=== PATIENT | female | born 1990 ===

== ENCOUNTER 2024-10-01 08:35 | Outpatient (CLI) | payer OTHER | END 2024-10-01 08:38 | disposition home or self-care (01) | LOC: PRENATAL 08:35 | PROVIDERS: ATTEND Obstetrics & Gynecology Maternal & Fetal Medicine | DX: O36.80X0 Pregnancy with inconclusive fetal viability, not applicable or unspecified (principal); Z36.82 Encounter for antenatal screening for nuchal translucency; O99.210 Obesity complicating pregnancy, unspecified trimester; Z3A.12 12 weeks gestation of pregnancy ==

== ENCOUNTER 2024-12-01 08:06 | Outpatient (CLI) | payer OTHER ==
[2024-12-01] MEDS ORDERED: PRENATAL + DHA1 EAC1 PO (11:53)
[2024-12-01] MEDS ORDERED: ASA81 MG PO (11:53)
== END 2024-12-01 08:07 | disposition home or self-care (01) ==
LOC: PRENATAL 08:06
PROVIDERS: ATTEND Obstetrics & Gynecology Maternal & Fetal Medicine
DX: O44.00 Complete placenta previa NOS or without hemorrhage, unspecified trimester (principal); O99.210 Obesity complicating pregnancy, unspecified trimester; O26.879 Cervical shortening, unspecified trimester; Z3A.21 21 weeks gestation of pregnancy

== ENCOUNTER 2024-12-01 10:02 | Inpatient (IN) | payer OTHER ==
[~2024-12-01] VITALS: Ht 167.6 cm; Wt 124.7 kg
[2024-12-01 10:15] VITALS: BP 124/83
[2024-12-01] MEDS ORDERED: AMPICILLIN SODIUM 2,000 MG VIAL ONE (10:36)
[2024-12-01] MEDS ORDERED: AMPICILLIN SODIUM 2,000 MG VIAL IV ONE (10:45)
[2024-12-01] MEDS ORDERED: RINGERS SOLUTION,LACTATED 1,000 ML IV SCH (10:45)
[2024-12-01 11:22] LABS: PH,URINE 7.5 (5.0-8.0); URINE APPEARANCE Clear; URINE BILIRRUBIN Negative (NEGATIVE); URINE BLOOD Negative; URINE COLOR Yellow; URINE GLUCOSE Negative (NEGATIVE); URINE KETONE Negative (NEGATIVE); URINE LEUKOCYTE Negative; URINE NITRATE Negative; URINE PROTEIN Negative (NEGATIVE); URINE UROBILINOGEN 0.2 E.U./dl
[2024-12-01 11:23] LABS: HEMATOCRIT 32.9 % (36.0-45.00); HEMOGLOBIN 11.2 g/dL (12.0-15.00); MEAN CELL VOLUME 83.7 fL (80.00-100.00); MEAN CORPUSCULAR HEMOGLOBIN 28.4 pg (27.00-32.0); MEAN CORPUSCULAR HGB CONC 33.9 g/dl (32.0-36.0); PLATELET COUNT 377 K/uL (150-450); RED BLOOD COUNT 3.93 M/uL (4.00-6.00); RED CELL DISTRIBUTION WIDTH 14.8 % (11.5-14.5); URINE BACTERIA 17.1 uL (0.0-1933); URINE EPITHELIAL CELLS 2.8 uL (0.0-38.8); URINE RBC 10.3 uL (0.0-20.8); URINE WBC 2.6 uL (0.0-23.2)
[2024-12-01 11:31] LABS: URINE CAST 0.14 uL (0.0-1.40)
[2024-12-01 11:38] VITALS: BP 105/69; O2SAT 100
[2024-12-01 11:46] LABS: INR < 0.93; PARTIAL THROMBOPLASTIN TIME 26.2 SECONDS (22.0-34.0); PROTHROMBIN TIME 10.1 SECONDS (9.0-11.5)
[2024-12-01 11:49] LABS: ALBUMIN 2.8 gm/dL (3.4-5.0); BILIRUBIN TOTAL 0.21 mg/dL (0.3-1.2); GFR 268.09; GLOBULINA 3.8 G/DL (2.4-3.5); POTASSIUM 4.03 mEq/L (3.5-5.1); TOTAL PROTEIN 6.6 gm/dL (6.4-8.2)
[2024-12-01] MEDS ORDERED: ASA81 MG PO (11:53)
[2024-12-01] MEDS ORDERED: PRENATAL + DHA1 EAC1 PO (11:53)
[2024-12-01 11:55] LABS: CREATININE SERUM 0.29 mg/dL (0.55-1.02)
[2024-12-01] MEDS ORDERED: AMPICILLIN SODIUM 1,000 MG VIAL IV SCH ×2 (13:00→16:00)
[2024-12-01 15:43] VITALS: BP 194/71
[2024-12-01 19:41] VITALS: BP 107/73
[2024-12-01] MEDS ORDERED: ACETAMINOPHEN 500 MG GEL..CAP PO ONE ×2 (22:29→22:30)
[2024-12-01 23:18] VITALS: BP 108/72
[2024-12-02 03:47] VITALS: BP 107/70
[2024-12-02 06:01] VITALS: BP 96/66; O2SAT 99
[2024-12-02] MEDS ORDERED: PNV,CALCIUM 72/IRON/FOLIC ACID 1 TAB TABLET PO ONE (09:26)
[2024-12-02] MEDS ORDERED: PNV,CALCIUM 72/IRON/FOLIC ACID 1 TAB TABLET PO SCH (09:30)
[2024-12-02 11:25] VITALS: BP 110/75
[2024-12-02 13:55] VITALS: BP 115/76
[2024-12-02 17:05] VITALS: BP 107/74
[2024-12-03 00:52] VITALS: BP 108/60
[2024-12-03 08:00] VITALS: BP 128/70
[2024-12-03 15:16] VITALS: BP 114/80
[2024-12-04 00:23] VITALS: BP 111/70
[2024-12-04 10:32] VITALS: BP 109/75
[2024-12-04 16:00] VITALS: BP 105/71
[2024-12-05] VITALS: BP 95/60
[2024-12-05 09:00] VITALS: BP 108/74
[2024-12-05 17:38] VITALS: BP 91/62
[2024-12-06] VITALS: BP 112/76
[2024-12-06 08:00] VITALS: BP 121/78
[2024-12-06] MEDS ORDERED: ACETAMINOPHEN 500 MG GEL..CAP PO NR (13:30)
[2024-12-06] MEDS ORDERED: GUAIFENESIN 200 MG/10 ML BLIST.PACK PO PRN (13:30)
[2024-12-06 16:00] VITALS: BP 102/69
[2024-12-06] MEDS ORDERED: DOCUSATE SODIUM 100MG CAP PO SCH (17:00)
[2024-12-06 23:35] VITALS: BP 112/67
[2024-12-07 08:00] VITALS: BP 108/71
[2024-12-07 15:24] VITALS: BP 100/68
[2024-12-08 01:54] VITALS: BP 101/70
[2024-12-08 08:00] VITALS: BP 101/67
[2024-12-08] MEDS ORDERED: ASPIRIN 81 MG TABLET.EC PO NR (10:30)
[2024-12-08 20:22] VITALS: BP 114/69
[2024-12-09] VITALS: BP 106/73
[2024-12-09 08:00] VITALS: BP 113/71
[2024-12-09] MEDS ORDERED: ASPIRIN 81 MG TABLET.EC PO SCH (09:00)
[2024-12-09 16:00] VITALS: BP 97/60
[2024-12-10 00:25] VITALS: BP 109/62
[2024-12-10 08:00] VITALS: BP 97/65
[2024-12-10 14:58] VITALS: BP 111/74
[2024-12-11 00:17] VITALS: BP 118/75
[2024-12-11 08:23] VITALS: BP 110/78
[2024-12-11] MEDS ORDERED: DOCUSATE CALCIUM 240 MG CAPSULE PO NR (10:15)
[2024-12-11] MEDS ORDERED: DOCUSATE CALCIUM 240 MG CAPSULE PO SCH (17:00)
[2024-12-11 17:20] VITALS: BP 101/69
[2024-12-11 23:55] VITALS: BP 109/60
[2024-12-12 16:08] VITALS: BP 125/83
[2024-12-13] VITALS: BP 116/78
[2024-12-13 08:00] VITALS: BP 111/71
[2024-12-13 16:07] VITALS: BP 110/70
== END 2024-12-13 17:36 | disposition home or self-care (01) | DRG 831 ==
LOC: OB/GYN 10:02 → LDR 10:02 → OB/GYN 12-02 11:20
PROVIDERS: ADMIT Obstetrics & Gynecology; ATTEND Obstetrics & Gynecology
PROC: 4A1HXCZ Monitoring of Products of Conception, Cardiac Rate, External Approach (ICD-10-PCS; principal; 2024-12-01)
PROC: BY4CZZZ Ultrasonography of Second Trimester, Single Fetus (ICD-10-PCS; 2024-12-06)
PROC: BU4CZZZ Ultrasonography of Uterus and Ovaries (ICD-10-PCS; 2024-12-06)
PROC: BY4CZZZ Ultrasonography of Second Trimester, Single Fetus (ICD-10-PCS; 2024-12-13)
PROC: BU4CZZZ Ultrasonography of Uterus and Ovaries (ICD-10-PCS; 2024-12-13)
DX: O26.872 Cervical shortening, second trimester (principal); O60.02 Preterm labor without delivery, second trimester; O36.80X0 Pregnancy with inconclusive fetal viability, not applicable or unspecified; O26.842 Uterine size-date discrepancy, second trimester; Z3A.21 21 weeks gestation of pregnancy

== ENCOUNTER 2024-12-14 09:56 | Outpatient (CLI) | payer OTHER ==
[~2024-12-14 09:56] MED LIST: ASA81 MG PO; PRENATAL + DHA1 EAC1 PO
== END 2024-12-14 09:57 | disposition home or self-care (01) ==
LOC: PRENATAL 09:56
PROVIDERS: ATTEND Obstetrics & Gynecology Maternal & Fetal Medicine
DX: Z76.1 Encounter for health supervision and care of foundling (principal)

== ENCOUNTER 2024-12-24 13:10 | Outpatient (CLI) | payer OTHER | END 2024-12-24 13:11 | disposition home or self-care (01) | LOC: PRENATAL 13:10 | PROVIDERS: ATTEND Obstetrics & Gynecology Maternal & Fetal Medicine | DX: O26.849 Uterine size-date discrepancy, unspecified trimester (principal); O26.879 Cervical shortening, unspecified trimester; O99.210 Obesity complicating pregnancy, unspecified trimester; Z3A.25 25 weeks gestation of pregnancy ==

== ENCOUNTER 2024-12-24 16:33 | Inpatient (IN) | payer OTHER ==
[~2024-12-24] VITALS: Ht 167.6 cm; Wt 0.5 kg
[2024-12-24 15:40] VITALS: BP 120/79
[2024-12-24] MEDS ORDERED: BETAMETHASONE ACETATE,SOD PHOS 30 MG/5 ML ML IM ONE ×2 (17:00)
[2024-12-24] MEDS ORDERED: RINGERS SOLUTION,LACTATED 500 ML IV SCH (17:00)
[2024-12-24 17:32] LABS: HEMOGLOBIN 11.2 g/dL (12.0-15.00); MEAN CELL VOLUME 84.3 fL (80.00-100.00); MEAN CORPUSCULAR HEMOGLOBIN 27.7 pg (27.00-32.0); MEAN CORPUSCULAR HGB CONC 32.8 g/dl (32.0-36.0); PLATELET COUNT 399 K/uL (150-450); RED BLOOD COUNT 4.03 M/uL (4.00-6.00); RED CELL DISTRIBUTION WIDTH 14.2 % (11.5-14.5)
[2024-12-24 17:36] LABS: URINE APPEARANCE Clear; URINE BILIRRUBIN Negative (NEGATIVE); URINE BLOOD Negative; URINE COLOR Yellow; URINE GLUCOSE Negative (NEGATIVE); URINE LEUKOCYTE Small; URINE NITRATE Negative; URINE PROTEIN Negative (NEGATIVE); URINE UROBILINOGEN 0.2 E.U./dl
[2024-12-24] MEDS ORDERED: BETAMETHASONE ACETATE,SOD PHOS 30 MG/5 ML ML ONE (17:36)
[2024-12-24 17:40] LABS: URINE BACTERIA 220.2 uL (0.0-1933); URINE EPITHELIAL CELLS 6.6 uL (0.0-38.8); URINE RBC 31.2 uL (0.0-20.8); URINE WBC 10.2 uL (0.0-23.2)
[2024-12-24 17:47] LABS: INR 0.94; PARTIAL THROMBOPLASTIN TIME 25.6 SECONDS (22.0-34.0); PROTHROMBIN TIME 10.3 SECONDS (9.0-11.5)
[2024-12-24 17:50] LABS: URINE KETONE 40 (NEGATIVE)
[2024-12-24 17:51] LABS: ALBUMIN 2.8 gm/dL (3.4-5.0); BILIRUBIN TOTAL 0.33 mg/dL (0.3-1.2); CALCIUM 9.6 mg/dL (8.5-10.1); CREATININE SERUM 0.37 mg/dL (0.55-1.02); GFR 202.39; POTASSIUM 4.32 mEq/L (3.5-5.1); TOTAL PROTEIN 6.8 gm/dL (6.4-8.2)
[2024-12-24 19:34] VITALS: BP 90/63
[2024-12-24 23:24] VITALS: BP 98/62
[2024-12-25 03:24] VITALS: BP 104/69
[2024-12-25] MEDS ORDERED: MAGNESIUM SULFATE IN WATER 500 ML IV SCH (07:00)
[2024-12-25 07:41] VITALS: BP 91/60
[2024-12-25 11:36] VITALS: BP 101/65
[2024-12-25 15:15] VITALS: BP 93/64
[2024-12-25] MEDS ORDERED: BETAMETHASONE ACETATE,SOD PHOS 30 MG/5 ML ML IM SCH (18:00)
[2024-12-25 21:39] VITALS: BP 98/62
[2024-12-25] MEDS ORDERED: PROGESTERONE 200 MG VAG SCH (21:45)
[2024-12-25 23:30] VITALS: BP 94/62
[2024-12-26 04:00] VITALS: BP 101/70
[2024-12-26 07:45] VITALS: BP 103/69
[2024-12-26] MEDS ORDERED: PNV,CALCIUM 72/IRON/FOLIC ACID 1 TAB TABLET PO SCH (09:00)
[2024-12-26 10:52] VITALS: BP 119/80
[2024-12-26 14:58] VITALS: BP 112/72
[2024-12-26] MEDS ORDERED: PATIENTS OWN MEDICATION (MEDICAMENTO EN PISO) VAG SCH (21:00)
[2024-12-27 00:49] VITALS: BP 101/67
[2024-12-27 07:45] VITALS: BP 101/66
[2024-12-27 15:42] VITALS: BP 136/62
[2024-12-28] VITALS: BP 117/71
[2024-12-28 08:20] VITALS: BP 102/67
[2024-12-28 16:07] VITALS: BP 97/65
[2024-12-29] VITALS: BP 97/58
[2024-12-29 07:22] VITALS: BP 123/55
[2024-12-29] MEDS ORDERED: MAGNESIUM SULFATE IN WATER 4 GM/100 ML PIGGYBACK IV ONE (07:24)
[2024-12-29] MEDS ORDERED: MAGNESIUM SULFATE IN WATER 0.04 GM/ML IV.SOLN IV ONE (07:25)
[2024-12-29] MEDS ORDERED: AMPICILLIN SODIUM 2,000 MG VIAL ONE (07:25)
[2024-12-29] MEDS ORDERED: AMPICILLIN SODIUM 2,000 MG VIAL IV ONE (08:00)
[2024-12-29] MEDS ORDERED: MAGNESIUM SULFATE IN WATER 100 ML IV ONE (08:00)
[2024-12-29] MEDS ORDERED: MAGNESIUM SULFATE IN WATER 500 ML IV SCH (08:00)
[2024-12-29 09:30] LABS: HEMATOCRIT 33.6 % (36.0-45.00); HEMOGLOBIN 11.2 g/dL (12.0-15.00); MEAN CELL VOLUME 84.5 fL (80.00-100.00); MEAN CORPUSCULAR HEMOGLOBIN 28.1 pg (27.00-32.0); MEAN CORPUSCULAR HGB CONC 33.3 g/dl (32.0-36.0); PLATELET COUNT 395 K/uL (150-450); RED BLOOD COUNT 3.97 M/uL (4.00-6.00); RED CELL DISTRIBUTION WIDTH 14.2 % (11.5-14.5)
[2024-12-29] MEDS ORDERED: CEFAZOLIN SODIUM 1,000 MG VIAL ONE (10:53)
[2024-12-29] MEDS ORDERED: ERYTHROMYCIN BASE OPHT 1GM EACH TUBE OP ONE (10:59)
[2024-12-29] MEDS ORDERED: OXYTOCIN 10 UNITS/ML VIAL ONE ×2 (10:59→15:27)
[2024-12-29 11:05] VITALS: BP 105/70; O2SAT 100
[2024-12-29] MEDS ORDERED: CEFAZOLIN SODIUM 1,000 MG VIAL IV ONE (11:15)
[2024-12-29] MEDS ORDERED: AMPICILLIN SODIUM 1,000 MG VIAL IV SCH (12:00)
[2024-12-29] MEDS ORDERED: SUGAMMADEX SODIUM 200 MG/2 ML VIAL IV ONE (12:16)
[2024-12-29] MEDS ORDERED: MORPHINE SULFATE 4 MG/ML VIAL IV ONE (13:45)
[2024-12-29] MEDS ORDERED: MORPHINE SULFATE 4 MG/ML CARTRIDGE IV PRN (13:45)
[2024-12-29] MEDS ORDERED: RINGERS SOLUTION,LACTATED 1,000 ML IV SCH (14:00)
[2024-12-29] MEDS ORDERED: OXYTOCIN 1,000 ML IV SCH (14:00)
[2024-12-29] MEDS ORDERED: DOCUSATE SODIUM 100MG CAP PO SCH (17:00)
[2024-12-29] MEDS ORDERED: SIMETHICONE 125 MG CAPSULE PO SCH (18:00)
[2024-12-29 18:16] LABS: HEMATOCRIT 33.5 % (36.0-45.00); HEMOGLOBIN 11.2 g/dL (12.0-15.00); MEAN CELL VOLUME 83.1 fL (80.00-100.00); MEAN CORPUSCULAR HEMOGLOBIN 27.7 pg (27.00-32.0); MEAN CORPUSCULAR HGB CONC 33.3 g/dl (32.0-36.0); PLATELET COUNT 386 K/uL (150-450); RED BLOOD COUNT 4.03 M/uL (4.00-6.00); RED CELL DISTRIBUTION WIDTH 14.8 % (11.5-14.5)
[2024-12-30] VITALS: BP 132/78
[2024-12-30 04:00] VITALS: BP 118/78
[2024-12-30 08:00] VITALS: BP 114/79
[2024-12-30] MEDS ORDERED: IBUprofen 800 MG TABLET PO SCH (09:00)
[2024-12-30 16:00] VITALS: BP 123/80
[2024-12-31 01:27] VITALS: BP 112/76
[2024-12-31 08:00] VITALS: BP 107/69
[2024-12-31 16:18] VITALS: BP 113/75
[2024-12-31 20:42] VITALS: BP 115/77
[2025-01-01 00:03] VITALS: BP 120/81
[2025-01-01 08:59] VITALS: BP 101/68
== END 2025-01-01 13:43 | disposition home or self-care (01) | DRG 786 ==
LOC: OB/GYN 16:33 → LDR 16:33 → OB/GYN 12-26 10:25
PROVIDERS: Obstetrics & Gynecology; ADMIT Obstetrics & Gynecology; ATTEND Obstetrics & Gynecology
PROC: 4A1HXCZ Monitoring of Products of Conception, Cardiac Rate, External Approach (ICD-10-PCS; 2024-12-24)
PROC: 3E0P7VZ Introduction of Hormone into Female Reproductive, Via Natural or Artificial Opening (ICD-10-PCS; 2024-12-26)
PROC: 3E033VJ Introduction of Other Hormone into Peripheral Vein, Percutaneous Approach (ICD-10-PCS; 2024-12-29)
PROC: 10D00Z1 Extraction of Products of Conception, Low, Open Approach (ICD-10-PCS; principal; 2024-12-29 11:15)
DX: O69.0XX0 Labor and delivery complicated by prolapse of cord, not applicable or unspecified (principal); O41.1220 Chorioamnionitis, second trimester, not applicable or unspecified; O60.12X0 Preterm labor second trimester with preterm delivery second trimester, not applicable or unspecified; O26.872 Cervical shortening, second trimester; O36.8320 Maternal care for abnormalities of the fetal heart rate or rhythm, second trimester, not applicable or unspecified; O32.1XX0 Maternal care for breech presentation, not applicable or unspecified; O42.012 Preterm premature rupture of membranes, onset of labor within 24 hours of rupture, second trimester; O62.0 Primary inadequate contractions; Z3A.24 24 weeks gestation of pregnancy; Z37.0 Single live birth